=== PATIENT | male | born 1985 | race Caucasian/White ===

== ENCOUNTER 2022-06-26 15:54 | Outpatient (CLI) | payer MEDICAID, SELFPAY | END 2022-06-26 15:55 | disposition home or self-care (01) | PROVIDERS: PCP Family Medicine; Visit Provider Family Medicine | DX: Z00.00 Encounter for general adult medical examination without abnormal findings (principal); R53.83 Other fatigue; Z13.6 Encounter for screening for cardiovascular disorders | CPT/HCPCS: 80053; 80061; 82607; 82728; 83540; 83550; 84443 ==

== ENCOUNTER 2022-07-24 20:54 | Outpatient (CLI) | payer MEDICAID, SELFPAY ==
--- NOTE | 2022-08-13 08:10 | W.PM.SLEEP ---
Sleep Study Details Details Interpreting Provider: Cherri Date of Sleep Study: 07/24/22 Sleep Study Details: STUDY TYPE:? Hospital-based ? BMI:? 21.8 ORDERING PROVIDER:? Dawna INDICATION:? Concerns about sleep apnea ? SLEEP SUMMARY:? Total sleep time 435.5 minutes, sleep latency 9.0, REM latency 1.8 hours, efficiency 96.1 Arousal index 4 RESPIRATORY SUMMARY:? Mean oxygen awake 96 asleep 95 minimum 89 AHI 0.3 RDI 1.8, REM AHI 0.8 Entire study was done in the supine position PERIODIC LIMB MOVEMENTS OF SLEEP:? None noted CARDIAC:? Heart rate awake 59, asleep 54, no arrhythmias noted IMPRESSION:? This study does not demonstrate significant obstructive sleep apnea. If sleep disorder is strongly suspected would recommend overnight study followed by multiple sleep latency testing. RECOMMENDATION: []
== END 2022-07-24 20:55 | disposition home or self-care (01) ==
LOC: SLEEP 20:55
PROVIDERS: PCP Family Medicine; Visit Provider Family Medicine
DX: R06.81 Apnea, not elsewhere classified (principal); R53.83 Other fatigue; R06.83 Snoring
CPT/HCPCS: 95810